=== PATIENT | male | born 1995 | race Caucasian/White ===

== ENCOUNTER 2020-10-07 22:49 | Emergency (ER) | payer OTHER ==
[~2020-10-07] VITALS: Ht 182.9 cm; Wt 68.0 kg
[2020-10-07] MEDS ORDERED: LIDOCAINE VISC100 ML PO (23:21)
[2020-10-07 23:37] VITALS: BP 119/64
== END 2020-10-07 23:37 | disposition home or self-care (01) ==
LOC: ER 22:49
DX: R07.0 Pain in throat (principal); Z98.890 Other specified postprocedural states